=== PATIENT | male | born 1940 | race Caucasian/White ===

== ENCOUNTER 2017-12-23 16:28 | Emergency (ER) | payer SELFPAY ==
--- NOTE | 2017-12-23 16:55 | NUR ---
PT HAD TO LEAVE - HAD A REPORTED FAMILY EMERGENCY.
== END 2017-12-23 17:00 | disposition left against medical advice (07) ==
LOC: ER 16:29
DX: Z53.21 Procedure and treatment not carried out due to patient leaving prior to being seen by health care provider (principal)

== ENCOUNTER 2018-04-29 16:14 | Emergency (ER) | payer MEDICARE, MEDICAID ==
[~2018-04-29] VITALS: Ht 172.7 cm; Wt 103.9 kg
[2018-04-29] MEDS ORDERED: UNK B/P MED PO (16:44)
[2018-04-29] MEDS ORDERED: ATEN25TA PO (17:21)
[2018-04-29 18:40] LABS: BASOPHILS # (AUTO) 0.1 K/uL (0.0-8.0); EOSINOPHILS # (AUTO) 0.2 K/uL (0.0-0.7); EOSINOPHILS % (AUTO) 1.6 % (0.0-7.0); HEMOGLOBIN 16.4 g/dL (12.5-16.3); LYMPHOCYTES # (AUTO) 2.7 K/uL (20.0-40.0); LYMPHOCYTES % (AUTO) 28.9 % (20.5-51.5); MEAN CORPUSCULAR HEMOGLOBIN 31.3 uug (23.8-33.4); MEAN CORPUSCULAR HGB CONC 34 g/dL (32.5-36.3); MEAN CORPUSCULAR VOLUME 91.6 fL (73.0-96.2); MONOCYTES # (AUTO) 0.9 K/uL (2.0-10.0); MONOCYTES % (AUTO) 9.9 % (0.0-11.0); NEUTROPHILS # (AUTO) 5.5 K/uL (1.8-8.9); NEUTROPHILS % (AUTO) 58.6 % (38.5-71.5); PLATELET COUNT (AUTO) 239 K/uL (152-348); RED BLOOD CELL COUNT(AUTO) 5.24 MIL/uL (4.06-5.63); WHITE BLOOD COUNT (AUTO) 9.4 K/uL (3.6-10.2)
[2018-04-29 18:49] LABS: CARBON DIOXIDE 30 mmol/L (21-32); CHLORIDE 105 mmol/L (98-107); CREATININE 0.8 mg/dL (0.6-1.3); GLUCOSE 111 mg/dL (74-106); POTASSIUM 3.9 mmol/L (3.5-5.1); UREA NITROGEN, BLOOD 20 mg/dL (7-18)
[2018-04-29 18:55] LABS: ALANINE AMINOTRANSFERASE 26 U/L (16-63); ALKALINE PHOSPHATASE 117 U/L (50-136); ASPARTATE AMINOTRANSFERASE 20 U/L (15-37); BILIRUBIN,DIRECT 0.1 mg/dL (0.0-0.2); BILIRUBIN,TOTAL 0.5 mg/dL (0.2-1.0); TOTAL PROTEIN, SERUM 8.2 g/dL (6.4-8.2)
--- NOTE | 2018-04-29 19:24 | NUR ---
PATIENT OUT OF UNIT FOR CT SCAN VIA GURNY
[2018-04-29] MEDS ORDERED: NORMAL SALINE FLUSH 10 ML DISP.SYRIN ONE (19:29)
[2018-04-29] MEDS ORDERED: SWABABLE VALVE TRANSFER SET EA MC ONE (19:29)
[2018-04-29] MEDS ORDERED: IV NORMAL SALINE 100 ML ONE (19:29)
[2018-04-29] MEDS ORDERED: IOHEXOL 350 100 ML INFUS..BTL ONE (19:29)
--- NOTE | 2018-04-29 19:46 | NUR ---
PATIENT BACK FROM CT SCAN. DR MARR INTO EVAL PATIENT
[2018-04-29] MEDS ORDERED: ONDANSETRON ODT 4 MG TAB.RAPDIS SL ONE (21:00)
[2018-04-29] MEDS ORDERED: HYDROCODONE/APAP 5-325MG TABLET PO ONE (21:00)
--- NOTE | 2018-04-29 21:15 | NUR ---
IV removed. Catheter intact and site benign. Pressure and 4x4 gauze applied to site. No bleeding noted.
[2018-04-29] MEDS ORDERED: HYDROCODONE/APAP 5-325MG TABLET ONE (21:17)
[2018-04-29] MEDS ORDERED: ONDANSETRON ODT 4 MG TAB.RAPDIS ONE (21:17)
--- NOTE | 2018-04-29 21:22 | NUR ---
Patient discharged to home in stable conditon WITH SON TAKING PATIENT HOME. Written and verbal after care instructions given. Patient verbalizes understanding of instructions. WALKED OUT OF ER WITH NO DISTRESS NOTED
[2018-04-29 21:23] VITALS: BP 140/70
== END 2018-04-29 21:24 | disposition home or self-care (01) ==
LOC: ER 16:16
DX: R51 Headache (principal); I10 Essential (primary) hypertension; Z79.899 Other long term (current) drug therapy
CPT/HCPCS: 36415; 70496; 70498; 80048; 80076; 84484; 85025; 85730; 93005; 99285; A4663; J3490 ×2; Q0162; Q9967; 70030-TC

== ENCOUNTER 2022-01-09 14:45 | Emergency (ER) | payer MEDICARE, OTHER ==
[~2022-01-09] VITALS: Ht 172.7 cm; Wt 102.1 kg
[~2022-01-09 14:45] MED LIST: ATEN25TA PO
[2022-01-09] MEDS ORDERED: HYDROCODONE/APAP 10-325 MG TABLET PO ONE (15:00)
[2022-01-09] MEDS ORDERED: HYDROCODONE/APAP 10-325 MG TABLET ONE (15:07)
--- NOTE | 2022-01-09 15:32 | NUR ---
PT IS IN BED #2A. DR LEY EVALUATED THE PT.
[2022-01-09] MEDS ORDERED: MORPHINE SULFATE 2 MG/1 ML DISP.SYRIN IM ONE (17:00)
[2022-01-09] MEDS ORDERED: ALBU8.5H8 INH ×2 (17:04→17:06)
[2022-01-09] MEDS ORDERED: HYDR-4209 PO ×2 (17:04→17:05)
--- NOTE | 2022-01-09 17:12 | NUR ---
PT WAS D/C'd TO HOME. D/C INSTRUCTIONS GIVEN TO THE PT BY DR LEY.
[2022-01-09] MEDS ORDERED: MORPHINE SULFATE 2 MG/1 ML DISP.SYRIN ONE (17:13)
[2022-01-09 17:15] VITALS: BP 141/81
== END 2022-01-09 17:17 | disposition home or self-care (01) ==
LOC: ER 14:45
DX: S22.41XA Multiple fractures of ribs, right side, initial encounter for closed fracture (principal); W01.0XXA Fall on same level from slipping, tripping and stumbling without subsequent striking against object, initial encounter; Y92.59 Other trade areas as the place of occurrence of the external cause; I10 Essential (primary) hypertension; M19.90 Unspecified osteoarthritis, unspecified site; J98.11 Atelectasis; F17.210 Nicotine dependence, cigarettes, uncomplicated
CPT/HCPCS: 71250; 96372; 99284; J2270; A4663

== ENCOUNTER 2022-03-21 22:46 | Emergency (ER) | payer MEDICARE, OTHER ==
[~2022-03-21] VITALS: Ht 170.2 cm; Wt 93.0 kg
[~2022-03-21 22:46] MED LIST changes: +ALBU8.5H8 INH; +HYDR-4209 PO
--- NOTE | 2022-03-21 22:46 | NUR ---
Patient walked into ER c/o constipation for 2 days
--- NOTE | 2022-03-21 23:45 | NUR ---
Patient refused X ray
--- NOTE | 2022-03-21 23:48 | NUR ---
Patient refused to wait for the discharge paper
--- NOTE | 2022-03-21 23:52 | NUR ---
Patient refused to sign discharge paper
[2022-03-22] MEDS ORDERED: HYDR25SU33 RC (01:54)
[2022-03-22 03:29] VITALS: BP 119/66
== END 2022-03-21 23:55 | disposition home or self-care (01) ==
LOC: ER 22:48
DX: K59.00 Constipation, unspecified (principal); Z95.810 Presence of automatic (implantable) cardiac defibrillator; I10 Essential (primary) hypertension; Z79.899 Other long term (current) drug therapy
CPT/HCPCS: A4663; J7040